=== PATIENT | male | born 1990 | race African-American/Black ===

== ENCOUNTER 2016-11-19 02:02 | Emergency (ER) | payer SELFPAY ==
[~2016-11-19] VITALS: Ht 190.5 cm; Wt 87.5 kg
[~2016-11-19 02:02] MED LIST: CLAR10CA3 PO; ERYTOIN10 EACH EYE; IBUP800T23 PO; POLY10O EACH EYE
[2016-11-19 02:05] VITALS: BP 134/104; PULSE 79; RESP 15; TEMP 98.6; O2SAT 100
--- NOTE | 2016-11-19 02:52 | PD ---
HPI Chief Complaint: Injury Time Seen by Provider: 02:40 Travel History International Travel<30 days: No Contact w/Intl Traveler<30days: No Traveled to known affect area: No History of Present Illness HPI 26-year-old male presents to emergency department for evaluation of left calf pain. Patient states 5 days ago he was kneed in the calf while playing football. He states initially he was fine. He works 12 hour shifts the next day. Over the last 3 days and has developed significant swelling and over the last day and half significant pain. Pain is an 8 out of 10. He states he cannot straighten his leg secondary to the pain. He states the area distal to the swelling there is an alteration in sensation/numbness when he touches it. States the pain is worse at night. Denies fever or chills. Denies any other symptoms at this time. PFSH Past Medical History Medical History: Denies Significant Hx Social History Tobacco Use: No Allergies-Medications (Allergen,Severity, Reaction): Coded Allergies: No Known Allergies (Unverified , 11/19/16) Reported Meds & Prescriptions Reported Meds & Active Scripts Active Lortab (Hydrocodone-Acetaminophen) 5-325 Mg Tab 1 Tab PO Q6H PRN Ibuprofen 800 Mg Tab 800 Mg PO Q8H PRN Review of Systems Except as stated in HPI: all other systems reviewed are Neg Physical Exam Narrative GENERAL: Well-nourished male patient, in no acute distress. SKIN: Focused skin assessment warm/dry. Erythema HEAD: Atraumatic. Normocephalic. EYES: Pupils equal and round. No scleral icterus. No injection or drainage. ENT: No nasal bleeding or discharge. Mucous membranes pink and moist. NECK: Trachea midline. No JVD. CARDIOVASCULAR: Regular rate and rhythm. No murmur appreciated. RESPIRATORY: No accessory muscle use. Clear to auscultation. Breath sounds equal bilaterally. GASTROINTESTINAL: Abdomen soft, non-tender, nondistended. Hepatic and splenic margins not palpable. MUSCULOSKELETAL: No obvious deformities. No clubbing. No cyanosis. The proximal aspect of the left distal lower extremity is edematous and taught. It is tender to touch. There is very mild pain elicited with passive flexion and extension of the distal extremity. There is a dopplerable posterior tibial pulse on the left compared to a palpable right posterior tibial pulse. Pedal pulses are palpable. NEUROLOGICAL: Awake and alert. No obvious cranial nerve deficits. Motor grossly within normal limits. Normal speech. PSYCHIATRIC: Appropriate mood and affect; insight and judgment normal. Data Data Last Documented VS Vital Signs Date Time Temp Pulse Resp B/P (MAP) Pulse Ox O2 Delivery O2 Flow Rate FiO2 11/19/16 05:47 11/19/16 02:05 98.6 79 15 100 Room Air Orders Orders Iv Access Insert/Monitor (11/19/16 02:46) Complete Blood Count With Diff (11/19/16 02:46) Basic Metabolic Panel (Bmp) (11/19/16 02:46) Creatine Kinase (Cpk) (11/19/16 02:46) Tibia/Fibula (Ap/Lat) (11/19/16 ) Morphine Inj (Morphine Inj) (11/19/16 03:15) Ondansetron Inj (Zofran Inj) (11/19/16 03:15) Us Leg Venous Doppler (11/19/16 ) Sodium Chlor 0.9% 1000 Ml Inj (Ns 1000 M (11/19/16 03:30) CKMB (11/19/16 03:00) CKMB% (11/19/16 03:00) Sodium Chlor 0.9% 1000 Ml Inj (Ns 1000 M (11/19/16 04:30) Sodium Chlor 0.9% 1000 Ml Inj (Ns 1000 M (11/19/16 04:30) Ketorolac Inj (Toradol Inj) (11/19/16 04:30) Crutches (11/19/16 05:03) Labs Laboratory Tests Test 11/19/16 03:00 White Blood Count 7.3 TH/MM3 Red Blood Count 3.95 MIL/MM3 Hemoglobin 12.4 GM/DL Hematocrit 36.8 % Mean Corpuscular Volume 93.2 FL Mean Corpuscular Hemoglobin 31.5 PG Mean Corpuscular Hemoglobin Concent 33.8 % Red Cell Distribution Width 13.2 % Platelet Count 217 TH/MM3 Mean Platelet Volume 9.5 FL Neutrophils (%) (Auto) 56.3 % Lymphocytes (%) (Auto) 28.8 % Monocytes (%) (Auto) 13.4 % Eosinophils (%) (Auto) 0.7 % Basophils (%) (Auto) 0.8 % Neutrophils # (Auto) 4.1 TH/MM3 Lymphocytes # (Auto) 2.1 TH/MM3 Monocytes # (Auto) 1.0 TH/MM3 Eosinophils # (Auto) 0.1 TH/MM3 Basophils # (Auto) 0.1 TH/MM3 CBC Comment DIFF FINAL Differential Comment Blood Urea Nitrogen 15 MG/DL Creatinine 1.15 MG/DL Random Glucose 98 MG/DL Calcium Level 8.2 MG/DL Sodium Level 137 MEQ/L Potassium Level 3.6 MEQ/L Chloride Level 105 MEQ/L Carbon Dioxide Level 27.3 MEQ/L Anion Gap 5 MEQ/L Estimat Glomerular Filtration Rate 94 ML/MIN Total Creatine Kinase 2702 U/L Creatine Kinase MB 4.7 NG/ML Creatine Kinase MB % 0.2 % MDM Medical Decision Making Medical Screen Exam Complete: Yes Emergency Medical Condition: Yes Medical Record Reviewed: Yes Differential Diagnosis Contusion versus hematoma versus DVT versus compartment syndrome Narrative Course A 26-year-old male presents to emergency department for evaluation of left calf swelling following an injury sustained 4 days ago. Patient appears without distress. The area is quite swollen and tight, however pain is not out of proportion for exam. I do have concern for possible compartment syndrome and asked my attending physician Dr. Dee to also assess the patient. Last Impressions Tibia/Fibula X-Ray 11/19/16 0000 Signed Impressions: Service Date/Time: Saturday, November 19, 2016 03:04 - CONCLUSION: 1. The osseous structures of the leg are intact. 2. Possible swelling in the posterior soft tissues of the knee. Alejo Nolan MD Lower Extremity Ultrasound 11/19/16 0000 Signed Impressions: Service Date/Time: Saturday, November 19, 2016 03:31 - CONCLUSION: 1. The study is negative for deep venous thrombosis left lower extremity. 2. 6 cm area of heterogeneous echogenicity within the posterior calf musculature. Alejo Nolan MD Findings are discussed with my attending physician. We will not move forward with compartment pressure checks at this time. Patient is treated for pain. Results are discussed with him in his female partner at bedside. He is counseled on care. He agrees to return immediately with any acute worsening symptoms. Diagnosis Primary Impression: Hematoma of left lower extremity Qualified Codes: S80.12XA - Contusion of left lower leg, initial encounter Referrals: Primary Care Physician Patient Instructions: General Instructions, Hematoma (ED) Additional Instructions: Ice and/or warm moist heat to the affected area Follow-up with a primary care provider Elevate to reduce pain and swelling Return immediately to the emergency department with any acute worsening of symptoms Med/Other Pt SpecificInfo: Prescription(s) given Scripts Hydrocodone-Acetaminophen (Lortab) 5-325 Mg Tab 1 TAB PO Q6H Y for PAIN GREATER THAN 6, #12 TAB 0 Refills Prov: Krystal Hedrick 11/19/16 Ibuprofen (Ibuprofen) 800 Mg Tab 800 MG PO Q8H Y for Pain/Inflammation, #30 TAB 0 Refills Prov: Krystal Hedrick 11/19/16 Disposition: 01 DISCHARGE HOME Condition: Stable Krystal Hedrick Nov 19, 2016 02:52
[2016-11-19] MEDS ORDERED: ONDANSETRON HCL 4 MG/2 ML VIAL IV PUSH ONE (03:15)
[2016-11-19] MEDS ORDERED: MORPHINE SULFATE 4 MG/ML INJ IV PUSH ONE (03:15)
[2016-11-19] MEDS ORDERED: SODIUM CHLOR 0.9% 1000 ML INJ 1,000 ML IV ONE ×3 (03:30→04:30)
[2016-11-19 03:32] LABS: AUTOMATED NEUTROPHIL # 4.1 TH/MM3 (1.8-7.7); BASOPHIL # 0.1 TH/MM3 (0-0.2); BASOPHIL % 0.8 % (0.0-2.0); EOSINOPHIL # 0.1 TH/MM3 (0-0.4); EOSINOPHIL % 0.7 % (0.0-4.0); HEMATOCRIT 36.8 % (39.0-51.0); HEMO FLAGS DIFF FINAL; LYMPH % 28.8 % (9.0-44.0); LYMPHOCYTE # 2.1 TH/MM3 (1.0-4.8); MEAN CELL VOLUME 93.2 FL (80.0-100.0); MEAN CORPUSCULAR HEMOGLOBIN 31.5 PG (27.0-34.0); MEAN CORPUSCULAR HGB CONC 33.8 % (32.0-36.0); MONO % 13.4 % (0.0-8.0); NEUT % 56.3 % (16.0-70.0); PLATELET COUNT 217 TH/MM3 (150-450); RED BLOOD COUNT 3.95 MIL/MM3 (4.50-5.90); RED CELL DISTRIBUTION WIDTH 13.2 % (11.6-17.2); WHITE BLOOD COUNT 7.3 TH/MM3 (4.0-11.0)
--- NOTE | 2016-11-19 03:34 | RADRPT ---
EXAM DATE/TIME: 11/19/2016 03:04 [facility] COMPARISON: No previous studies available for comparison. INDICATIONS : Left proximal tibia pain. Football injury. MEDICAL HISTORY : None. SURGICAL HISTORY : None. ENCOUNTER: Initial ACUITY: 1 day PAIN SCORE: 8/10 LOCATION: Left tibia FINDINGS: Two view examination of the left tibia demonstrates no evidence of fracture or dislocation. Bony min eralization is normal. There is loss of fat planes in the posterior knee without definite soft tissu e swelling no radiopaque foreign body.. CONCLUSION: 1. The osseous structures of the leg are intact. 2. Possible swelling in the posterior soft tissues of the knee. Alejo Nolan MD on November 19, 2016 at 3:31 Board Certified Radiologist. This report was verified electronically.
[2016-11-19 03:48] LABS: BICARBONATE 27.3 MEQ/L (21.0-32.0); POTASSIUM 3.6 MEQ/L (3.5-5.1)
--- NOTE | 2016-11-19 04:09 | RADRPT ---
EXAM DATE/TIME: 11/19/2016 03:31 [facility] COMPARISON: No previous studies available for comparison. INDICATIONS : Left leg pain and swelling. MEDICAL HISTORY : Left leg pain. left leg swelling. SURGICAL HISTORY : Right forearm surgery. ENCOUNTER: Initial ACUITY: 3 days PAIN SCORE: 7/10 LOCATION: Left leg. TECHNIQUE: Venous ultrasound of the leg was performed from the inguinal ligament to the proximal calf. Real-justyna e, color Doppler and spectral tracing, compression and augmentation techniques were used. FINDINGS: There is normal compressibility of the deep venous system from the inguinal region to the proximal ca lf. No echogenic clot is seen in the lumen of the common femoral, femoral, popliteal, and posterior tibial veins. There is a normal response of the venous system to proximal and distal augmentation an d respiration. There is an abnormal appearance to the soft tissues of the posterior calf with a heterogeneous hypere choic area with in the calf musculature measuring 6.1 x 4.2 x 4.4 cm. No focal fluid collections see n. No increased flow within this abnormality on color Doppler. CONCLUSION: 1. The study is negative for deep venous thrombosis left lower extremity. 2. 6 cm area of heterogeneous echogenicity within the posterior calf musculature. Alejo Nolan MD on November 19, 2016 at 4:06 Board Certified Radiologist. This report was verified electronically.
[2016-11-19 04:30] LABS: CKMB 4.7 NG/ML (0.5-3.6)
[2016-11-19] MEDS ORDERED: KETOROLAC TROMETHAMINE 30 MG/ML (IVP) VIAL IV PUSH ONE (04:30)
[2016-11-19] MEDS ORDERED: IBUP800T23 PO (05:02)
[2016-11-19] MEDS ORDERED: HYDR-3533 PO (05:02)
== END 2016-11-19 05:57 | disposition home or self-care (01) ==
LOC: NEPD 02:02
DX: S80.12XA Contusion of left lower leg, initial encounter (principal); W50.0XXA Accidental hit or strike by another person, initial encounter; Y93.61 Activity, american tackle football
CPT/HCPCS: 73590; 80048; 82550; 82552; 85025; 93971; 96361; 96374; 96375; 99285; E0113; J1885; J2270; J2405; J7030